=== PATIENT | female | born 2000 | race Two or more races ===

== ENCOUNTER 2025-06-22 09:48 | Outpatient (AMB) | payer MEDICAID, SELFPAY ==
[2025-06-22 10:02] VITALS: BP 105/69; PULSE 84; RESP 17; TEMP 36.9; O2SAT 96; BMI 29.0
--- NOTE | 2025-06-22 10:02 | OBCLNT_ITS ---
Vital Signs 06/22/25 10:02 Height 1.52 m Height Method Stated Weight 67.302 kg Weight Measurement Method Standing Scale BMI 29.0 BP 105/69 Blood Pressure Source Automatic Cuff Blood Pressure Location Right Upper Arm Position Sitting Respiration 17 Pulse 84 Pulse Source Monitor Temp 98.4 F Temp Source Temporal Artery Scan Pulse Oximetry (%) 96 Oxygen Delivery Method Room Air Allergies/Home Meds Allergies & Medications Allergies No Known Allergies Allergy (Verified 06/22/25 10:03) Medication Reconciliation Unobtainable 06/22/25 [History Confirmed 06/22/25] Intake Visit Data Collection New Patient or Established: New Patient (never been to [facility]) Reason for Visit:: OBI TRANSFER DR. PARISI Seen by Clinical Staff ONLY (RN/MA): No Kennel Hand Required: No Do You Feel Safe at Home: Yes Authorities Contacted: N/A PCP or OBGYN visit in last 3 months: No Hx Now: Yes Are you currently on any form of Control: No Pain Present Currently: No Pain Scale Used: Schneider-Miller/Numerical Pain scale:: 0 Smoking Status Smoking Status: Never smoker Questionnaires Covid-19 Vaccine Questionnaire Has patient been vacinated for Covid-19 Have you been vacinated for Covid-19: No PHQ-9 PHQ-2 Over the last 2 weeks, how often have you been bothered by any of the following problems? 1. Little interest or pleasure in doing things: not at all 2. Feeling down, depressed, or hopeless: not at all Total score: 0 PHQ-9 3. Trouble falling or staying asleep, or sleeping too much: Not at all 4. Feeling tired or having little energy: Not at all 5. Poor appetite or overeating: Not at all 6. Feeling bad about yourself - or that you are a failure or have let yourself or your family down: Not at all 7. Trouble concentrating on things, such as reading the newspaper or watching television: Not at all 8. Moving or speaking so slowly that other people could have noticed? - Or the opposite - being so fidgety or restless that you have been moving around a lot more than usual: not at all 9. Thoughts that you would be better off or of hurting yourself in some way: Not at all Total score: 0 If you checked off any problems, how difficult have these problems made it for you to do your work, take care of things at home, or get along with other people?: not difficult at all Source: Developed by Drs. Andrae Rodgers, Jennyfer Gloria, Anton Bella and colleagues, with an educational magui from [employer]. Depression screen completed yes Social History Living Situation History Marital Status: Lives With: Family Housing: House Tobacco History Smoking Status: Never smoker Second Hand Smoke Exposure: No Alcohol History Alcohol Intake: Never Domestic Abuse History Do You Feel Safe at Home: Yes History of Present Illness HPI Narrative 24-year-old 1 para 0 for initial OB. Patient transfer at [address] Parisi's office. Her last period was November 08, 2024. Estimated due date August 15, 2025. The first documented ultrasound was May 11, 2025. Patient was 27 weeks 3 days. And this confirmed dates. Denies social habits. Denies surgery. Denies chronic illness. Patient's labs have been within normal limits. There is no documented type and Rh in the chart. But patient RPR is negative. Rubella nonimmune. Hepatitis B negative, HIV negative, hep C negative, GC and Chlamydia were negative. Patient had negative NIPT, negative AFP, negative carrier screens. And the 1 hour GTT was normal. Reports good movement. Denies leaking, bleeding, contractions OB Initial Visit OB Flowsheet OB Flowsheet Initial Weight: Not Recorded Date -?-?-?-?-?-?-?-?-?-?-?-?- EGA Weight BP Alb Glu CTX Pres Fundal ht FHR Mov Dilation Station Effacement Hx Notes Visit Note 06/22/25 -?-?-?-?-?-?-?-?-?-?-?-?- 32w 2d 67.302 kg 105/69 absent cephalic 33 145 active 24-year-old for OBI. Patient a transfer from [facility] with records. Fetus active. Denies leaking, denies bleeding, denies contractions. Patient is taking vitamins. Her has been uneventful. S chedule ultrasound for MFM. Discussed labor precautions increase fluids. GBS next visit. kick count twice daily. Return in 2 weeks OB check Menstrual History Menstrual reliability: unknown Flow: normal Menstrual regularity: irregular Monthly: No Age at menarche: 15 On control pills at conception: No OB History : 1 Infection History & Risk Evaluation History of STDs: none HIV risk evaluation: low risk Hepatitis B risk evaluation: low risk Patient or partner has history of Genital Herpes: No Varicella/chicken pox status: unknown Genetic Screening & History Genetic Screening/Teratology Counseling - Includes patient, baby's father, or anyone in either family with: 1. Patient's age 35 years or older as of estimated date of delivery: No 2. Thalassemia (Uruguayan, Irish, Mediterranean, or Background); MCV less than 80: No 3. Neural Tube Defect (Meningomyelocele, Spina Bifida, or Anencephaly): No 4. Congenital Heart Defect: No 5. Down Syndrome: No 6. Miles-Sachs (Ashkenazi Church, Cajun, Greek Portuguese): No 7. Rosi Disease (Ashkenazi Church): No 8. Familial Dysautonomia (Ashkenazi Church): No 9. Sickle Cell Disease or Trait (): No 10. Hemophilia or other blood disorders: No 11. Muscular Dystrophy: No 12. Cystic Fibrosis: No 13. Liliana's Chorea: No 14. Mental Retardation/Autism: No 15. Other inherited genetic or chromosomal disorder: No 16. Maternal Metabolic Disorder (EG,TYPE 1 Diabetes, PKU): No 17. Patient or baby's father had a child with defects not listed above: No 18. Recurrent loss or a stillbirth: No 19. Medications (including supplements, vitamins, herbs or otc drugs)/illicit/recreational drugs/alcohol since last menstrual period: No 20. Any other: No Infection History 1. Live with someone with TB or exposed to TB: No 2. Rash or viral illness since last menstrual period: No 3. Hepatitis B,C: No Other (see comments) Source: [employer] Review of Systems Review of Systems Systems Reviewed: All systems reviewed, normal except as documented Exam General Limitations: no limitations General Appearance: alert, in no apparent distress, comfortable, cooperative, healthy appearing, well developed and well groomed Head Head exam: atraumatic, normocephalic and normal inspection Resp Respiratory exam: Present normal lung sounds bilaterally Card Cardiovascular exam: Present regular rate, normal rhythm and normal heart sounds Abdominal Abdominal exam: Present soft and normal bowel sounds Psych Psychiatric exam: Present normal affect and normal mood Office Procedures OB Clinic LOC & Office Proc's Nursing/Assessment Patient Status: Initial/New Patient OB Clinic Nursing Assessment: Medication Reconciliation, Update PMH in EMR and Vital Signs OB Clinic Coordination of Care: Complex Care and Chronic Disease 1-5, Consent,records obtained, informed consent, Education Simp Pt/Fam, 4+ Authorizations needed, Lab and Imaging orders and Staff clarify orders Special Needs: Heart tones New Patient Charge New Patient Point Assignment: [id number] New Patient Point Charge: LOCOMOTIVE ELECTRICIAN Level 4 (0646-1104) Assessment & Plan Diagnosis / Problem List (1) Encounter for supervision of normal first , third trimester: Status: Acute (2) High-risk : Status: Acute Qualifiers: Trimester: third trimester Qualified Code(s): O09.93 - Supervision of high risk , unspecified, third trimester Plan Schedule M ultrasound for growth. Discussed labor precautions. Continue prenatals. Discussed danger signs symptoms and signs of infection. Return in 2 weeks OB check and GBS Additional Plan Follow Up: 2 Weeks (obc)
== END 2025-06-22 10:38 | disposition home or self-care (01) ==
LOC: HODSOBC 09:48
PROVIDERS: Supervising Provider Advanced Practice Midwife; Visit Provider Advanced Practice Midwife
DX: Z34.03 Encounter for supervision of normal first pregnancy, third trimester (principal); Z3A.32 32 weeks gestation of pregnancy
CPT/HCPCS: 99204; G0463

== ENCOUNTER 2025-07-20 10:12 | Outpatient (AMB) | payer MEDICAID, SELFPAY ==
[2025-07-20 10:50] VITALS: BP 125/87; PULSE 88; RESP 16; TEMP 36; O2SAT 97; BMI 36.6
--- NOTE | 2025-07-20 10:50 | OBCLNT_ITS ---
Vital Signs 07/20/25 10:50 Height 1.52 m Height Method Stated Weight 84.538 kg Weight Measurement Method Standing Scale BMI 36.6 BP 125/87 H Blood Pressure Source Automatic Cuff Blood Pressure Location Left Upper Arm Position Sitting Respiration 16 Pulse 88 Pulse Source Monitor Temp 96.8 F Temp Source Oral Pulse Oximetry (%) 97 Oxygen Delivery Method Room Air Allergies/Home Meds Allergies & Medications Allergies No Known Allergies Allergy (Verified 07/20/25 10:51) Medication Reconciliation Unobtainable 06/22/25 [History Confirmed 07/20/25] Intake Visit Data Collection New Patient or Established: Established Patient (seen at [facility] within 3 years) Reason for Visit:: CARE Associate Professor Of Radiology Required: No Do You Feel Safe at Home: Yes Authorities Contacted: N/A PCP or OBGYN visit in last 3 months: Yes Hx Now: Yes Are you currently on any form of Control: No Pain Present Currently: No Pain Scale Used: Schneider-Miller/Numerical Pain scale:: 0 Smoking Status Smoking Status: Never smoker Questionnaires Covid-19 Vaccine Questionnaire Has patient been vacinated for Covid-19 Have you been vacinated for Covid-19: Yes PHQ-9 PHQ-2 Over the last 2 weeks, how often have you been bothered by any of the following problems? 1. Little interest or pleasure in doing things: not at all 2. Feeling down, depressed, or hopeless: not at all Total score: 0 PHQ-9 3. Trouble falling or staying asleep, or sleeping too much: Not at all 4. Feeling tired or having little energy: Not at all 5. Poor appetite or overeating: Not at all 6. Feeling bad about yourself - or that you are a failure or have let yourself or your family down: Not at all 7. Trouble concentrating on things, such as reading the newspaper or watching television: Not at all 8. Moving or speaking so slowly that other people could have noticed? - Or the opposite - being so fidgety or restless that you have been moving around a lot more than usual: not at all 9. Thoughts that you would be better off or of hurting yourself in some way: Not at all Total score: 0 Source: Developed by Drs. Andrae Rodgers, Jennyfer B.Anton Yuan and colleagues, with an educational magui from [employer]. Depression screen completed yes Social History Living Situation History Lives With: Family Housing: House Tobacco History Smoking Status: Never smoker Second Hand Smoke Exposure: No Alcohol History Alcohol Intake: Never Domestic Abuse History Do You Feel Safe at Home: Yes Care OB Visit Log OB Flowsheet Initial Weight: Not Recorded Date -?-?-?-?-?-?-?-?-?-?-?-?- EGA Weight BP Alb Glu CTX Pres Fundal ht FHR Mov Dilation Station Effacement Hx Notes Visit Note 06/22/25 -?-?-?-?-?-?-?-?-?-?-?-?- 32w 2d 67.302 kg 105/69 absent cephalic 33 145 active 24-year-old for OBI. Patient a transfer from [facility] with records. Fetus active. Denies leaking, denies bleeding, denies contractions. Patient is taking vitamins. Her has been uneventful. S chedule ultrasound for MFM. Discussed labor precautions increase fluids. GBS next visit. kick count twice daily. Return in 2 weeks OB check 07/20/25 -?-?-?-?-?-?-?-?-?-?-?-?- 36w 2d 84.538 kg 125/87 occasional cephalic 35 145 active No OB complaints. Fetus active. Denies leaking, denies bleeding, denies contractions. GBS today. Discussed labor precautions. Discussed kick count twice a day. Discussed danger signs symptoms and ER precautions. Return a week OB check KATE Calculator Estimated Delivery Date Method Current WG Current Estimate 08/15/25 LMP (Certain) 36w 2d Other Estimates 08/07/25 Ultrasound #1 37w 3d 08/15/25 Ultrasound #2 36w 2d Notes Visit Date: 06/22/25 Last Updated by: Cordeila Olguin CNM 06/22: 24 yo , lmp 11/08/24. eDC 08/15/25. 1st sono: 05/11/25: 27w3. EDC 08/07/25. NIPT/AFP and carrier screen-, HBSAG-,HIV-,HC-, GC/CT-, UT-, 1hr gtt- RPR:NR, rubella NI, A1: 5.6 Office Procedures OB Clinic LOC & Office Proc's Nursing/Assessment Patient Status: Established Patient OB Clinic Nursing Assessment: Medication Reconciliation, Update PMH in EMR and Vital Signs OB Clinic Coordination of Care: Complex Care and Chronic Disease 1-5, Consent,records obtained, informed consent, Education Simp Pt/Fam, Lab and Imaging orders, Results/Orders obtained and Staff clarify orders Special Needs: Heart tones Miscellaneous Interventions: Culture Specimen Collection Established Patient Charge Established Patient Point Assignment: 150 Established Patient Point Charge: EP Level 4 (120-155) Assessment & Plan Diagnosis / Problem List (1) Encounter for supervision of normal first , third trimester: Status: Acute Plan Discussed labor precautions. Discussed danger signs symptoms. Discussed ER precautions. Kick count twice a day. Return a week OB check Additional Plan Follow Up: 1 Week (obc)
== END 2025-07-20 11:05 | disposition home or self-care (01) ==
LOC: HODSOBC 10:12
PROVIDERS: Supervising Provider Advanced Practice Midwife; Visit Provider Advanced Practice Midwife
DX: Z34.03 Encounter for supervision of normal first pregnancy, third trimester (principal); Z36.85 Encounter for antenatal screening for Streptococcus B; Z3A.36 36 weeks gestation of pregnancy
CPT/HCPCS: 99214; G0463

== ENCOUNTER 2025-07-28 10:46 | Outpatient (AMB) | payer MEDICAID, SELFPAY ==
[2025-07-28 10:58] VITALS: BP 113/73; PULSE 94; RESP 16; TEMP 36.2; O2SAT 98
--- NOTE | 2025-07-28 10:58 | OBCLNT_ITS ---
Vital Signs 07/28/25 10:58 Height 1.52 m Height Method Stated Weight 69.513 kg Weight Measurement Method Standing Scale BMI 30.0 BP 113/73 Blood Pressure Source Automatic Cuff Blood Pressure Location Left Upper Arm Position Sitting Respiration 16 Pulse 94 Pulse Source Monitor Temp 97.2 F Temp Source Oral Pulse Oximetry (%) 98 Oxygen Delivery Method Room Air Allergies/Home Meds Allergies & Medications Allergies No Known Allergies Allergy (Verified 07/28/25 10:59) Medication Reconciliation Unobtainable 06/22/25 [History Confirmed 07/28/25] Intake Visit Data Collection New Patient or Established: Established Patient (seen at [facility] within 3 years) Reason for Visit:: OBC Seen by Clinical Staff ONLY (RN/MA): No Digital Coordinator Required: No Do You Feel Safe at Home: Yes Authorities Contacted: N/A PCP or OBGYN visit in last 3 months: Yes Date of Last PCP or OBGYN visit: 07/20/25 Hx Now: Yes Are you currently on any form of Control: No Pain Present Currently: No Pain Scale Used: Schneider-Miller/Numerical Pain scale:: 0 Smoking Status Smoking Status: Never smoker Questionnaires Covid-19 Vaccine Questionnaire Has patient been vacinated for Covid-19 Have you been vacinated for Covid-19: Yes PHQ-9 PHQ-2 Over the last 2 weeks, how often have you been bothered by any of the following problems? 1. Little interest or pleasure in doing things: not at all 2. Feeling down, depressed, or hopeless: not at all Total score: 0 PHQ-9 3. Trouble falling or staying asleep, or sleeping too much: Not at all 4. Feeling tired or having little energy: Not at all 5. Poor appetite or overeating: Not at all 6. Feeling bad about yourself - or that you are a failure or have let yourself or your family down: Not at all 7. Trouble concentrating on things, such as reading the newspaper or watching television: Not at all 8. Moving or speaking so slowly that other people could have noticed? - Or the opposite - being so fidgety or restless that you have been moving around a lot more than usual: not at all 9. Thoughts that you would be better off or of hurting yourself in some way: Not at all Total score: 0 If you checked off any problems, how difficult have these problems made it for you to do your work, take care of things at home, or get along with other people ?: not difficult at all Source: Developed by Drs. Andrae Rodgers, Jennyfer Gloria, Anton Bella and colleagues, with an educational magui from [employer]. Depression screen completed yes Social History Living Situation History Lives With: Family Housing: House Tobacco History Smoking Status: Never smoker Second Hand Smoke Exposure: No Alcohol History Alcohol Intake: Never Domestic Abuse History Do You Feel Safe at Home: Yes Care OB Visit Log OB Flowsheet Initial Weight: Not Recorded Date -?-?-?-?-?-?-?-?-?-?-?-?- EGA Weight BP Alb Glu CTX Pres Fundal ht FHR Mov Dilation Station Effacement Hx Notes Visit Note 06/22/25 -?-?-?-?-?-?-?-?-?-?-?-?- 32w 2d 67.302 kg 105/69 absent cephalic 33 145 active 24-year-old for OBI. Patient a transfer from [facility] with records. Fetus active. Denies leaking, denies bleeding, denies contractions. Patient is taking vitamins. Her has been uneventful. S chedule ultrasound for MFM. Discussed labor precautions increase fluids. GBS next visit. kick count twice rosalva ly. Return in 2 weeks OB check 07/20/25 -?-?-?-?-?-?-?-?-?-?-?-?- 36w 2d 84.538 kg 125/87 occasional cephalic 35 145 active No OB complaints. Fetus active. Denies leaking, denies bleeding, denies contractions. GBS today. Discussed labor precautions. Discussed kick count twice a day. Discussed danger signs symptoms and ER precautions. Return a week OB check 07/28/25 -?-?-?-?-?-?-?-?-?-?-?-?- 37w 3d 69.513 kg 113/73 occasional cephalic 36 145 active Fetus active. De nies leaking. Denies bleeding. Occasional contraction and pressure. GBS was positive Discussed GBS. Discussed labor precautions. Kick count twice a day. Discussed danger signs symptoms and ER precautions. Return week OB check KATE Calculator Estimated Delivery Date Method Current WG Current Estimate 08/15/25 LMP (Certain) 37w 3d Other Estimates 08/07/25 Ultrasound #1 38w 4d 08/15/25 Ultrasound #2 37w 3d Notes Visit Date: 07/28/25 Last Updated by: Cordelia Olguin CNM GBS+ Visit Date: 06/22/25 Last Updated by: Cordelia Olguin CNM 06/22: 24 yo , lmp 11/08/24. eDC 08/15/25. 1st sono: 05/11/25: 27w3. EDC 08/07/25. NIPT/AFP and carrier screen-, HBSAG-,HIV-,HC-, GC/CT-, UT-, 1hr gtt- RPR:NR, rubella NI, A1: 5.6 Office Procedures OB Clinic LOC & Office Proc's Nursing/Assessment Patient Status: Established Patient OB Clinic Nursing Assessment: Medication Reconciliation, Update PMH in EMR and Vital Signs OB Clinic Coordination of Care: Education Complex Pt/Fam, Consent,records obtained, informed consent, Lab and Imaging orders, Results/Orders obtained and Staff clarify orders Special Needs: Heart tones Established Patient Charge Established Patient Point Assignment: 115 Established Patient Point Charge: EP Level 3 (80-115) Assessment & Plan Diagnosis / Problem List (1) Encounter for supervision of normal first , third trimester: Status: Acute Plan Discussed GBS. Discussed labor precautions. Discussed kick count twice a day. Increase fluids. Continue prenatals. Return a week OB to Additional Plan Follow Up: 1 Week (obc)
== END 2025-07-28 11:36 | disposition home or self-care (01) ==
LOC: HODSOBC 10:46
PROVIDERS: Supervising Provider Advanced Practice Midwife; Visit Provider Advanced Practice Midwife
DX: O09.893 Supervision of other high risk pregnancies, third trimester (principal); O99.820 Streptococcus B carrier state complicating pregnancy; Z3A.37 37 weeks gestation of pregnancy
CPT/HCPCS: 99213; G0463

== ENCOUNTER 2025-08-10 10:08 | Outpatient (AMB) | payer MEDICAID, SELFPAY ==
--- NOTE | 2025-08-10 10:44 | OBCLNT_ITS ---
Vital Signs 08/10/25 10:52 Height 1.52 m Height Method Stated Weight 70.874 kg Weight Measurement Method Standing Scale BMI 30.7 BP 137/81 H Blood Pressure Source Automatic Cuff Blood Pressure Location Left Upper Arm Position Sitting Respiration 16 Pulse 81 Pulse Source Monitor Temp 98.1 F Temp Source Oral Pulse Oximetry (%) 97 Oxygen Delivery Method Room Air Allergies/Home Meds Allergies & Medications Allergies No Known Allergies Allergy (Verified 08/10/25 10:53) Medication Reconciliation Unobtainable 06/22/25 [History Confirmed 08/10/25] Intake Visit Data Collection New Patient or Established: Established Patient (seen at [facility] within 3 years) Reason for Visit:: CARE Seen by Clinical Staff ONLY (RN/MA): No [employer]ber Required: No Do You Feel Safe at Home: Yes Authorities Contacted: N/A PCP or OBGYN visit in last 3 months: Yes Hx Now: Yes Are you currently on any form of Control: No Pain Present Currently: No Pain Scale Used: Schneider-Miller/Numerical Pain scale:: 0 Smoking Status Smoking Status: Never smoker Questionnaires Covid-19 Vaccine Questionnaire Has patient been vacinated for Covid-19 Have you been vacinated for Covid-19: Yes PHQ-9 PHQ-2 Over the last 2 weeks, how often have you been bothered by any of the following problems? 1. Little interest or pleasure in doing things: not at all 2. Feeling down, depressed, or hopeless: not at all Total score: 0 PHQ-9 3. Trouble falling or staying asleep, or sleeping too much: Not at all 4. Feeling tired or having little energy: Not at all 5. Poor appetite or overeating: Not at all 6. Feeling bad about yourself - or that you are a failure or have let yourself or your family down: Not at all 7. Trouble concentrating on things, such as reading the newspaper or watching television: Not at all 8. Moving or speaking so slowly that other people could have noticed? - Or the opposite - being so fidgety or restless that you have been moving around a lot more than usual: not at all 9. Thoughts that you would be better off or of hurting yourself in some way: Not at all Total score: 0 Source: Developed by Jennyfer Chu B.W. Faizan, Anton Bella and colleagues, with an educational magui from [employer]. Depression screen completed yes Social History Living Situation History Lives With: Family Housing: House Tobacco History Smoking Status: Never smoker Second Hand Smoke Exposure: No Alcohol History Alcohol Intake: Never Domestic Abuse History Do You Feel Safe at Home: Yes Care OB Visit Log OB Flowsheet Initial Weight: Not Recorded Date -?-?-?-?-?-?-?-?-?-?-?-?- EGA Weight BP Alb Glu CTX Pres Fundal ht FHR Mov Dilation Station Effacement Hx Notes Visit Note 06/22/25 -?-?-?-?-?-?-?-?-?-?-?-?- 32w 2d 67.302 kg 105/69 absent cephalic 33 145 active 24-year-old for OBI. Patient a transfer from [facility] with records. Fetus active. Denies leaking, denies bleeding, denies contractions. Patient is taking vitamins. Her has been uneventful. S chedule ultrasound for MFM. Discussed labor precautions increase fluids. GBS next visit. kick count twice daily. Return in 2 weeks OB check 07/20/25 -?-?-?-?--?-?-?-?-?-?-?-?- 36w 2d 84.538 kg 125/87 occasional cephalic 35 145 active No OB complaints. Fetus active. Denies leaking, denies bleeding, denies contractions. GBS today. Discussed labor precautions. Discussed kick count twice a day. Discussed danger signs symptoms and ER precautions. Return a week OB check 07/28/25 -?-?-?--?-?-?-?-?-?-?-?-?- 37w 3d 69.513 kg 113/73 occasional cephalic 36 145 active Fetus active. Denies leaking. Denies bleeding. Occasional contraction and pressure. GBS was positive Discussed GBS. Discussed labor precautions. Kick count twice a day. Discussed danger signs symptoms and ER precautions. Return week OB check 08/10/25 -?-?-?-?-?-?-?-?-?-?-?-?- 39w 2d 70.874 kg 137/81 occasional cephalic 38 145 active 1 -2 80 Increased pressure and contractions. Denies leaking. Denies bleeding. Occasional contraction. Reports good movement Discussed labor signs and symptoms. Discussed ER precautions. Kick count twice a day. And danger signs symptoms reviewed return in a week OB check KATE Calculator Estimated Delivery Date Method Current WG Current Estimate 08/15/25 LMP (Certain) 39w 2d Other Estimates 08/07/25 Ultrasound #1 40w 3d 08/15/25 Ultrasound #2 39w 2d Notes Visit Date: 07/28/25 Last Updated by: Cordelia Olguin CNM GBS+ Visit Date: 06/22/25 Last Updated by: Cordelia Olguin CNM 06/22: 24 yo , lmp 11/08/24. eDC 08/15/25. 1st sono: 05/11/25: 27w3. EDC 08/07/25. NIPT/AFP and carrier screen-, HBSAG-,HIV-,HC-, GC/CT-, UT-, 1hr gtt- RPR:NR, rubella NI, A1: 5.6 Office Procedures OB Clinic LOC & Office Proc's Nursing/Assessment Patient Status: Established Patient OB Clinic Nursing Assessment: Medication Reconciliation, Update PMH in EMR and Vital Signs OB Clinic Coordination of Care: Complex Care and Chronic Disease 1-5, Consent,records obtained, informed consent, Education Simp Pt/Fam, 1 Ins Authorization, Lab and Imaging orders, Results/Orders obtained and Staff clarify orders Special Needs: Heart tones Established Patient Charge Established Patient Point Assignment: 150 Established Patient Point Charge: EP Level 4 (120-155) Assessment & Plan Diagnosis / Problem List (1) High-risk : Status: Acute Qualifiers: Trimester: third trimester Qualified Code(s): O09.93 - Supervision of high risk , unspecified, third trimester (2) Encounter for supervision of normal first , third trimester: Status: Acute Plan Discussed labor precautions. Kick count twice a day. Discussed ER precautions and signs symptoms. Patient is aware of PIH signs and symptoms. Return in a week OB check Additional Plan Follow Up: 1 Week (obc)
[2025-08-10 10:52] VITALS: BP 137/81; PULSE 81; RESP 16; TEMP 36.7; O2SAT 97; BMI 30.7
== END 2025-08-10 11:02 | disposition home or self-care (01) ==
LOC: HODSOBC 10:08
PROVIDERS: Supervising Provider Advanced Practice Midwife; Visit Provider Advanced Practice Midwife
DX: Z34.03 Encounter for supervision of normal first pregnancy, third trimester (principal); Z3A.39 39 weeks gestation of pregnancy
CPT/HCPCS: 99214; G0463

== ENCOUNTER 2025-08-11 13:08 | Inpatient (IN) | payer MEDICAID, SELFPAY ==
[2025-08-11] VITALS (103 sets, daily range): BP systolic 106–189; BP diastolic 59–99; PULSE 64–96; RESP 18–98; TEMP 36.8–37.1; O2SAT 92–100; BMI 31.8
[2025-08-11 14:00] LABS: ROM Kit Exp Date# 011828; ROM Kit Lot # 58104371; ROM Swab Mixed By: MEDIA1; Rupture of Fetal Membranes Positive (Negative); Swb Mxed in Solvent 1 min? Yes
[2025-08-11 15:10] LABS: Basophils # (Auto) 0.0 Thou/mm3 (0.0-0.2); Basophils % (Auto) 0 % (0-2.5); Eosinophils # (Auto) 0.0 Thou/mm3 (0.0-0.5); Eosinophils % (Auto) 1 % (0-10); Hematocrit 31.8 % (36.0-46.0); Hemoglobin 10.9 g/dL (12.0-16.0); Immature Granulocytes Auto 0.05 Thou/mm3 (0.00-0.00); Lymphocytes # (Auto) 1.0 Thou/mm3 (1.0-4.8); Lymphocytes % (Auto) 13 % (10-50); Mean Corpuscular HGB Conc 34.3 g/dl (31.0-37.0); Mean Corpuscular Hemoglobin 31.1 pg (25.0-35.0); Mean Corpuscular Volume 91 fL (80-100); Monocytes # (Auto) 0.6 Thou/mm3 (0.0-0.8); Monocytes % (Auto) 8 % (0-12); Neutrophils # (Auto) 5.9 Thou/mm3 (1.8-7.7); Neutrophils % (Auto) 77 % (37-80); Nucleated Red Blood Cell # 0.00 Thou/mm3 (0.00-0.00); Nucleated Red Blood Cell % 0 /100 WBC (0); Platelet Count 182 Thou/mm3 (140-440); RDW Standard Deviation 47.9 fL (36.4-46.3); Red Blood Count 3.51 Miln/mm3 (4.00-5.20); White Blood Count 7.6 Thou/mm3 (3.6-11.0)
--- NOTE | 2025-08-11 15:28 | XR_ITS ---
Examination: Complete OB ultrasound greater than 14 weeks Date and time of exam: August 11, 2025, 1545 hrs. Indications: Onset beginning amniotic fluid today Findings: Viable intrauterine single fetus with single amniotic sac presentation cephalic spine maternal left. Cardiac motion 133 BPM. Placenta anterior grade 3. Umbilical cord insertion seen. Amniotic fluid index 8.4 cm. Ovaries obscured by bowel gas. . Composite estimated gestational age based on BPD, head circumference, abdominal circumference, femur length is 36 weeks 4 days. Estimated weight 3091.8 g.. Survey of intracranial anatomy, spinal anatomy, abdominal anatomy, four-chamber heart performed with no abnormalities identified. Impression: Viable intrauterine gestation cephalic presentation.
--- NOTE | 2025-08-11 16:00 | PD.LDHP ---
Documentation for date of: 08/11/25 OB Labor/Induct. HPI History of Present Illness Chief complaint: leaking : 1 Para: 0 Term pregnancies: 0 pregnancies: 0 Living children: 0 History of Abortions: Spontaneous and Elective: 0 History of Vaginal deliveries: 0 History of sections: No History of : No Date of last menstrual period: 11/08/24 KATE: 08/15/25 Gestational Age (weeks): 39 Gestational Age (days): 3 Gestational age based on last menstrual period: 39 History of present illness: 24-year-old 1 para 0 for complaints of leaking fluid since 8 in the morning and contractions since 9:00. Patient was followed both at Dr. Pathak's office and then transferred to [facility] OB clinic at 32 weeks with records. Patient has not had a problem with at all reports good movement. No bleeding. Last. November 08, 2024. Her estimated due date what is August 15, 2025. That is based on a 27-week ultrasound that was done in May. Denies social habits. Denies surgery. Denies chronic illness. Patient is O+, antibody screen negative, RPR nonreactive, rubella nonimmune. Hepatitis B-, hep C negative, HIV negative, GC and Chlamydia were negative. 1 hour was normal. And patient is GBS positive History of Present Dating criteria: LMP confirmed by 1st trimester US Adequate Care: Yes Ultrasounds: normal mid trimester US Obstetrical complications: none Medical complications: none Labs Labs: Positive: Group Beta Strep, Negative: RPR, Hepatitis B, Rubella Titre, HIV, Chlamydia and Gonorrhea and Unknown: Herpes Type 1, Herpes Type 2 and Covid-19 Review of Systems Review of Systems Systems Reviewed: All systems reviewed, normal except as documented Past Medical History Surgical History SURGICAL: Negative Section Meds Home Medications and Allergies Home Medications ?Medication ?Instructions ?Recorded ?Confirmed ?Type okimiqn-dozh-SO 40 mg-1 1 tab PO QDAY 08/11/25 08/11/25 History mg chewable tablet Allergies Allergy/AdvReac Type Severity Reaction Status Date / Time No Known Allergies Allergy Verified 08/11/25 13:14 OB Exam Physical Exam Vital signs: Temp Pulse Resp BP Pulse Ox O2 Del Method 98.6 F 75 18 110/80 98 Room Air 08/11/25 13:24 08/11/25 13:25 08/11/25 13:24 08/11/25 13:25 08/11/25 15:08/11/25 13:24 Narrative: Alert and oriented. Normal heart rate and rhythm. Lungs clear no wheezes. Gravid abdomen. Gynecoid pelvis. Estimated weight 7-1/2 pounds. Vaginal exam on admission was 80%, 1, -2. Mid position. Vertex. Leaking clear fluid. Irregular contractions heart rate category 1 with accelerations and moderate variability Detailed Labor and Delivery Exam Dilation (cm): 1 Effacement (%): 80 Cervix position: mid station: -2 Consistency: medium Presentation: Vertex Membranes: ruptured Amniotic fluid: clear Baseline heart rate: 145 monitor accelerations: 15x15 monitor decelerations: None detention variability: Moderate (-25) Contraction frequency (min): irreg Contraction duration (sec): 30 Tachysystole: No Contraction intensity: Mild OB Results Labs 08/11/25 14:30 Labs: Short CBC 08/11/25 Range/Units 14:30 WBC 7.6 (3.6-11.0) Thou/mm3 Hgb 10.9 L (12.0-16.0) g/dL Hct 31.8 L (36.0-46.0) % Plt Count 182 (140-440) Thou/mm3 OB Assessment & Plan Assessment and Plan (1) Normal labor and delivery: Status: Acute Additional Plan Induction method: per misoprostol protocol Plan: augmentation, anticipate NVD, GBS prophylaxis tx and consult MD hopkins
[2025-08-11] MEDS: RINGERS LACTATED 1000 ML 1,000 ML 100 ML IV ×2 (16:49→21:55)
[2025-08-11] MEDS: Ampicillin Inj 2,000 MG in SODIUM CHLORIDE 0.9% (POP) 100 ML 200 MG IV (16:51)
[2025-08-11 17:54] LABS: Syphilis Nonreactive (Nonreactive)
[2025-08-11 18:22] LABS: COVID-19 Antigen (In-House) Positive (Negative)
[2025-08-11 20:22] LABS: Fibrinogen 553 mg/dL (175-375); INR 0.9 (0.9-1.3); Partial Thromboplastin Time 29.6 Seconds (22.0-36.0); Prothrombin Time 9.8 Seconds (9.0-12.2)
[2025-08-11 20:30] LABS: Alanine Aminotransferase 11 U/L (10-49); Albumin, Serum 3.8 gm/dL (3.5-5.0); Albumin/Globulin Ratio 1.8 (1.2-2.2); Alkaline Phosphatase 160 U/L (46-116); Anion Gap 12 (7-16); Aspartate Amino Transferase 21 U/L (0-34); BUN/Creatinine Ratio 12 Ratio (12-20); Bilirubin,Total 0.3 mg/dL (0.3-1.2); Blood Urea Nitrogen 6 mg/dL (9-23); Calcium 9.4 mg/dL (8.3-10.6); Calcium (Corrected) 9.6 mg/dL (8.5-10.1); Carbon Dioxide 21.2 mMol/L (20.0-31.0); Chloride 105 mMol/L (98-107); Creatinine (Component) 0.5 mg/dL (0.6-1.3); Estimated Creatinine Clearance 146.8 mL/min (>60); Globulin 2.1 gm/dL (2.3-3.5); Glucose 71 mg/dL (74-106); Osmolality,Calculated 271 (275-295); Potassium 3.6 mMol/L (3.4-5.1); Sodium 138 mMol/L (136-145); Total Protein 5.9 gm/dL (5.7-8.2); Uric Acid 4.2 mg/dL (3.1-7.8); eGFR > 60 See Note
[2025-08-11] MEDS: LABETALOL 100 MG TABLET 200 MG PO (21:11)
[2025-08-11] MEDS: Ampicillin Inj 1,000 MG in SODIUM CHLORIDE 0.9% (Popper) 50 ML 50 MG IV (21:12)
[2025-08-12] VITALS (165 sets, daily range): BP systolic 102–209; BP diastolic 55–118; PULSE 71–123; RESP 16–19; TEMP 36.8–37.7; O2SAT 92–100
[2025-08-12] MEDS: Ampicillin Inj 1,000 MG in SODIUM CHLORIDE 0.9% (Popper) 50 ML 50 MG IV (01:35)
[2025-08-12] MEDS: ACETAMINOPHEN 325 MG TABLET 650 MG PO (01:47)
[2025-08-12] MEDS: RINGERS LACTATED 1000 ML 1,000 ML 100 ML IV (06:12)
[2025-08-12] MEDS: OXYTOCIN in NS 20 units 20 UNIT/1,000 ML BAG 125 UNIT IV (06:12)
[2025-08-12] MEDS: OXYTOCIN INJ 10 UNIT/ML VIAL IM (06:12)
[2025-08-12] MEDS: MINERAL OIL 30 ML UDC TOP (06:12)
[2025-08-12] MEDS: BENZO/LANO/ALOE (Dermoplast) 60 GM CAN 1 SPRAY TOP (06:13)
[2025-08-12] MEDS: IBUPROFEN TAB 400 MG TABLET 800 MG PO (06:13)
[2025-08-12] MEDS: TRANEXAMIC ACID 1,000 MG IVPB 1,000 MG/100 ML BAG 200 MG IV ×2 (06:32→08:12)
--- NOTE | 2025-08-12 06:39 | PD.LDDELS ---
Data (Palmer) Data Hx Section: No : 1 Term: 0 : 0 Livin Abortions: Spontaneous & Theraputic: 0 Delivery Data (Palmer) Labor Data Initiation of labor: Augmentation Induction/Augmentation Agent: Cytotec-PO ROM date: 08/11/25 ROM time: 08:00 Amniotic membrane rupture type: Spontaneous Amniotic fluid description: Clear and Particulate Meconium Delivery Data EDC: 08/15/25 EDC calculated by:: LMP/early US confirmation Date of arrival to unit: 08/11/25 Time of arrival to unit: 13:08 Onset of labor date: 08/11/25 Onset of labor time: 05:53 Complete dilation date: 08/12/25 Complete dilation time: 03:02 delivery date: 08/12/25 [place] delivery time: 05:53 Gestational age (weeks): 39 Gestational age (days): 3 Placenta delivery date: 08/12/25 Placenta delivery time: 06:00 Stage 1 total time: Labor - Stage 1 Duration 21 hours and 9 minutes Delivered by: FLORENCE Delivery nurse: jahaira Walker nurse: dustin Roe rnc Lead Technologist In Cytogenetics at delivery: No Support person(s) at delivery: father of baby and cousin Delivery Method Delivery method: Normal Vaginal Delivery Presentation: Vertex position: OA Anesthesia Type Anesthesia Type: Epidural Delivery Room Medications Delivery room medications: Pitocin 10 u IM, Pitocin 20 u IV, Cytotec 800 GA and other (TXA) Placenta Placenta delivery description: Spontaneous (inspected, intact) Cord blood sent to lab: Yes cord blood collection: Cord Blood Type Episiotomy Episiotomy description: Midline Perineal repair Sutures used for repair: 3.0 Vicryl (2.0) EBL Estimated blood loss (ml): 400 Umbilical Cord cord description: 3 Vessels [place] Data (Palmer) Data order: 1 's gender: Female Identification band number: [id number] weight (gms): 3340 g Weight (pounds): 7 lbs and 5.8 ozs length: 50.8 cm 1 minute: 9 5 minutes: 9 10 minutes: 9
[2025-08-12] MEDS: DOCUSATE SOD 100 MG CAPSULE PO ×2 (08:44→20:24)
[2025-08-12] MEDS: SODIUM CHLORIDE 0.9% 250 ML 250 ML IV (09:32)
[2025-08-12] MEDS: Ampicillin Inj 2,000 MG in SODIUM CHLORIDE 0.9% (POP) 100 ML 100 MG IV ×2 (09:32→17:27)
[2025-08-12 16:49] LABS: Basophils # (Auto) 0.0 Thou/mm3 (0.0-0.2); Basophils % (Auto) 0 % (0-2.5); Eosinophils # (Auto) 0.0 Thou/mm3 (0.0-0.5); Eosinophils % (Auto) 0 % (0-10); Hematocrit 29.4 % (36.0-46.0); Hemoglobin 10.2 g/dL (12.0-16.0); Immature Granulocytes Auto 0.05 Thou/mm3 (0.00-0.00); Lymphocytes # (Auto) 1.5 Thou/mm3 (1.0-4.8); Lymphocytes % (Auto) 9 % (10-50); Mean Corpuscular HGB Conc 34.7 g/dl (31.0-37.0); Mean Corpuscular Hemoglobin 31.6 pg (25.0-35.0); Mean Corpuscular Volume 91 fL (80-100); Monocytes # (Auto) 0.9 Thou/mm3 (0.0-0.8); Monocytes % (Auto) 6 % (0-12); Neutrophils # (Auto) 13.6 Thou/mm3 (1.8-7.7); Neutrophils % (Auto) 85 % (37-80); Nucleated Red Blood Cell # 0.00 Thou/mm3 (0.00-0.00); Nucleated Red Blood Cell % 0 /100 WBC (0); Platelet Count 155 Thou/mm3 (140-440); RDW Standard Deviation 49.1 fL (36.4-46.3); Red Blood Count 3.23 Miln/mm3 (4.00-5.20); White Blood Count 16.0 Thou/mm3 (3.6-11.0)
[2025-08-13 00:43] VITALS: BP 111/70; PULSE 67; RESP 18; TEMP 36.6; O2SAT 96
[2025-08-13] MEDS: Ampicillin Inj 2,000 MG in SODIUM CHLORIDE 0.9% (POP) 100 ML 100 MG IV (00:47)
[2025-08-13 04:20] VITALS: BP 123/78; PULSE 71; RESP 16; TEMP 36.6; O2SAT 97
[2025-08-13] MEDS: DOCUSATE SOD 100 MG CAPSULE PO (07:57)
[2025-08-13] MEDS: IBUPROFEN TAB 400 MG TABLET 800 MG PO (07:57)
[2025-08-13 08:00] VITALS: BP 125/75; PULSE 75; RESP 17; TEMP 36.6; O2SAT 97
--- NOTE | 2025-08-13 09:32 | ESPR_ITS ---
Subjective Subjective Interval history: No complaints of pain. No dizziness. Voiding. No cough cold or wheezing. Exam Vital Signs Temp Pulse Resp BP Pulse Ox O2 Del Method 97.9 F 75 17 125/75 97 Room Air 08/13/25 08:00 08/13/25 08:00 08/13/25 08:00 08/13/25 08:00 08/13/25 08:00 08/13/25 08:00 Narrative Exam Vital signs are stable afebrile. Breasts are soft. Fundus is firm 3 below umbilicus. Small lochia. Uterus well involuted. Perineum intact no cyst swelling noted. Well repaired negative Homans' sign. 2+ DTRs Objective Labs 08/12/25 16:22 08/11/25 19:24 Labs: Laboratory Results - last 24 hr 08/12/25 16:22 WBC 16.0 H D RBC 3.23 L Hgb 10.2 L Hct 29.4 L MCV 91 MCH 31.6 MCHC 34.7 RDW Std Deviation 49.1 H Plt Count 155 Neut % (Auto) 85 H Lymph % (Auto) 9 L [place] % (Auto) 6 Eos % (Auto) 0 Baso % (Auto) 0 Neut # (Auto) 13.6 H Lymph # (Auto) 1.5 [place] # (Auto) 0.9 H Eos # (Auto) 0.0 Baso # (Auto) 0.0 Immature Gran # (Auto) 0.05 H Absolute Nucleated RBC 0.00 Immature Gran % 0 Nucleated RBC % 0 Assessment & Plan Problem List (1) Normal labor and delivery: Status: Acute Assessment Comment Assessment comment: 24 hr pp Plan Comment Plan Comment: Discharge home with baby. Continue vitamins and iron. Tylenol ibuprofen for pain. Discussed danger signs symptoms and ER precautions. Discussed signs symptoms of infection. Continue sitz bath's twice a day. Return in 3 weeks Time Spent With Patient Time: Total time spent is greater than 50% in coordination of care (as documented) at patient's floor/unit and/or counseling patient:
--- NOTE | 2025-08-13 09:34 | PD.LDDS ---
DS: Providers Provider Date of admission: 08/11/25 14:41 Primary care physician: Physician No Primary/Family Admitting Provider: Cordelia Olguin CNM Attending Provider on Admission: Elsie Roberson MD Consults: 08/12/25 06:57 Referral Routine Comment: Attending Provider on DC: Cordelia Olguin CNM Discharging Provider: Cordelia Olguin CNM DS: Diagnosis Problem List Completed Was Problem List Reviewed/Reconciled?: Yes Summary/Hosp Course Brief History: 24-year-old 1 para 0 for complaints of leaking fluid since 8 in the morning and contractions since 9:00. Patient was followed both at Dr. Pathak's office and then transferred to [facility] OB clinic at 32 weeks with records. Patient has not had a problem with at all reports good movement. No bleeding. Last. November 08, 2024. Her estimated due date what is August 15, 2025. That is based on a 27-week ultrasound that was done in May. Denies social habits. Denies surgery. Denies chronic illness. Patient is O+, antibody screen negative, RPR nonreactive, rubella nonimmune. Hepatitis B-, hep C negative, HIV negative, GC and Chlamydia were negative. 1 hour was normal. And patient is GBS positive Peripartum Data Delivery Method: Normal Vaginal Delivery Episiotomy Description: Midline Laceration Description: no complications: none Time Spent with Patient Time attestation: Total time spent providing and/or coordinating discharge services: Exam Vital Signs Temp Pulse Resp BP Pulse Ox O2 Del Method 97.9 F 75 17 125/75 97 Room Air 08/13/25 08:00 08/13/25 08:00 08/13/25 08:00 08/13/25 08:00 08/13/25 08:00 08/13/25 08:00 Discharge Plan Plan Patient Disposition: HOME (Self Care) Prescriptions/Referrals Prescriptions/Med Rec: No Action gwinsax-augv-PU 40-1 mg tablet,chewable 1 tab PO QDAY Referrals: No Primary/Family,Physician [Primary Care Provider] Patient/Caregiver Discharge Instructions Discharge Activity: resume usual activities Education Materials: After a Vaginal , After Delivery Concerns, Breast Care After Print Language: Moldovan Activity Restrictions/Additional Instructions: Discharge home with baby. Advised patient for partner and aunt to get tested for COVID. Discussed masking. Handwashing. Increase fluids. Tylenol or ibuprofen for pain. Continue prenatals. Discussed comfort measures and sitz bath's for midline appease. Discussed danger signs symptoms and ER precautions. Discussed signs symptoms of infection. Stand Alone Forms: Sherice Award Info., Patient Portal Info Letter Discharge Order Discharge Orders: Discharge (Routine); Ordered 08/13/25 Ordered By: Cordelia Olguin Planned Discharge Date 08/13/25
== END 2025-08-13 12:48 | disposition home or self-care (01) | DRG 560 ==
LOC: S4SX 23:39 → S4NX 08-12 09:23
PROVIDERS: Admitting Provider Advanced Practice Midwife; Visit Provider Obstetrics & Gynecology
DX: O99.824 Streptococcus B carrier state complicating childbirth (principal); O77.0 Labor and delivery complicated by meconium in amniotic fluid; Z37.0 Single live birth; Z3A.39 39 weeks gestation of pregnancy
CPT/HCPCS: 36415; 59025; 59409; 76805; 80053; 81001; 82570; 84112; 84156; 84550; 85025; 85384; 85610; 85730; 86780; 86850; 86900; 86901; 87635; 87811; 94762; J0290; J2590; J2795; J3490; J7050; J7120; S0191; A9270

== ENCOUNTER 2025-09-01 09:35 | Outpatient (AMB) | payer MEDICAID, SELFPAY ==
[2025-09-01 09:45] VITALS: BP 108/70; PULSE 64; RESP 17; TEMP 36.5; O2SAT 97; BMI 27.1
--- NOTE | 2025-09-01 09:45 | AMBOBPPN_ITS ---
Vital Signs 09/01/25 09:45 Height 1.5 m Height Method Stated Weight 60.951 kg Weight Measurement Method Standing Scale BMI 27.1 BP 108/70 Blood Pressure Source Automatic Cuff Blood Pressure Location Right Upper Arm Position Sitting Respiration 17 Pulse 64 Pulse Source Monitor Temp 97.7 F Temp Source Temporal Artery Scan Pulse Oximetry (%) 97 Oxygen Delivery Method Room Air Allergies/Home Meds Allergies & Medications Allergies No Known Allergies Allergy (Verified 09/01/25 09:46) Medication Reconciliation qbjqldq-crme-RG 40 mg-1 mg chewable tablet 1 tab PO QDAY 08/11/25 [Hi story Confirmed 09/01/25] Intake Visit Data Collection New Patient or Established: Established Patient (seen at [facility] within 3 years) Reason for Visit:: Seen by Clinical Staff ONLY (RN/MA): No Enrollment Management Vice President Required: No Do You Feel Safe at Home: Yes Authorities Contacted: N/A PCP or OBGYN visit in last 3 months: Yes Date of Last PCP or OBGYN visit: 08/13/25 Hx Now: No Are you currently on any form of Control: No Pain Present Currently: Yes Pain Scale Used: Schneider-Miller/Numerical Pain scale:: 0 Smoking Status Smoking Status: Never smoker LEAD CUSTODIAN: Past Medical History Past Medical History: No Hx Neurological Disorders, No Hx Breast Cancer, No Hx Cardiac Disorders, No Hx Cancer, No Hx Blood Disorders, No Hx Gastrointestinal Disorders, No Hx Renal Disease, No Hx Diabetes Mellitus Type 1 and No Hx Diabetes Mellitus Type 2 Questionnaires Covid-19 Vaccine Questionnaire Has patient been vacinated for Covid-19 Have you been vacinated for Covid-19: No Social History Living Situation History Marital Status: Lives With: Family Housing: House Tobacco History Smoking Status: Never smoker Second Hand Smoke Exposure: No Alcohol History Alcohol Intake: Never Domestic Abuse History Do You Feel Safe at Home: Yes EPDS - PP Depression Screening [place] Pospartum Depression Screen I have been able to laugh and see the funny side of things: (0) As much as I always could I have looked forward with enjoyment to things: (0) As much as I ever did I have blamed myself unnecessarily when things went wrong: (0) No, never I have been anxious or worried for no good reason: (0) No, not at all I have felt scared or panicky for no very good reason: (0) No, not at all Things have been getting on top of me: (0) No, I have been coping as well as ever I have been so unhappy that I have had difficulty sleeping: (0) No, not at all I have felt sad or miserable: (0) No, not at all I have been so unhappy that I have been crying: (0) No, never The thought of harming myself has occurred to me: (0) Never EPDS completed yes Care OB Visit Log OB Flowsheet Initial Weight: Not Recorded Date -?-?-?-?-?-?-?-?-?-?-?-?- EGA Weight BP Alb Glu CTX Pres Fundal ht FHR Mov Dilation Station Effacement Hx Notes Visit Note 06/22/25 -?-?-?-?-?-?-?-?-?-?-?-?- 32w 2d 67.302 kg 105/69 absent cephalic 33 145 active 24-year-old for OBI. Patient a transfer from [facility] with records. Fetus active. Denies leaking, denies bleeding, denies contractions. Patient is taking vitamins. Her has been uneventful. S chedule ultrasound for MFM. Discussed labor precautions increase fluids. GBS next visit. kick count twice daily. Return in 2 weeks OB check 07/20/25 -?-?-?-?-?-?-?-?-?-?-?-?- 36w 2d 84.538 kg 125/87 occasional cephalic 35 145 active No OB complaints. Fetus active. Denies leaking, denies bleeding, denies contractions. GBS today. Discussed labor precautions. Discussed kick count twice a day. Discussed danger signs symptoms and ER precautions. Return a week OB check 07/28/25 -?-?-?-?-?-?-?-?-?-?-?-?- 37w 3d 69.513 kg 113/73 occasional cephalic 36 145 active Fetus active. Denies leaking. Denies bleeding. Occasional contraction and pressure. GBS was positive Discussed GBS. Discussed labor precautions. Kick count twice a day. Discussed danger signs symptoms and ER precautions. Return week OB check 08/10/25 -?-?-?-?-?-?-?-?-?-?-?-?- 39w 2d 70.874 kg 137/81 occasional cephalic 38 145 active 1 -2 80 Increased pressure and contractions. Denies leaking. Denies bleeding. Occasional contraction. Reports good movement Discussed labor signs and symptoms. Discussed ER precautions. Kick count twice a day. And danger signs symptoms reviewed return in a week OB check KATE Calculator Estimated Delivery Date Method Current WG Current Estimate 08/15/25 LMP (Certain) 42w 3d Other Estimates 08/07/25 Ultrasound #1 43w 4d 08/15/25 Ultrasound #2 42w 3d Notes Visit Date: 07/28/25 Last Updated by: Cordelia Olguin CNM GBS+ Visit Date: 06/22/25 Last Updated by: Cordelia Olguin CNM 06/22: 24 yo , lmp 11/08/24. eDC 08/15/25. 1st sono: 05/11/25: 27w3. EDC 08/07/25. NIPT/AFP and carrier screen-, HBSAG-,HIV-,HC-, GC/CT-, UT-, 1hr gtt- RPR:NR, rubella NI, A1: 5.6 HPI Interval History: 24-year-old 1 para 1 for 3-week visit. Patient had vaginal delivery August 12, 2025. Baby girl weighing 7 pounds 7. Patient is breast- feeding without any problems. She is very happy and denies depression. She has limited support. Father the baby is involved. Patient had a normal . And a midline episiotomy Was or delivery considered high risk: No Delivery type: vaginal Was labor induced: no Gestational age at delivery (weeks): 39 Delivery date: 08/12/25 Delivering provider: hernandez Delivery complications: No Is patient infant: Yes Is patient sexually active: No Contraception planned: condom Review of Systems Review of Systems ROS limited to current LEAD CUSTODIAN complaints: Yes Exam Narrative Physical exam: Normal heart rate and rhythm. Lungs clear no wheezes. Abdomen is soft nontender. Uterus well involuted. Perineum is intact no lacerations. No swelling. Small lochia. Negative Homans' sign. 2+ DTRs. No edema no swelling. Breasts are soft General Limitations: no limitations General Appearance: alert, in no apparent distress, comfortable, cooperative, healthy appearing, well developed and well groomed Head Head exam: atraumatic, normocephalic and normal inspection Chest Chest inspection: Present normal inspection and symmetric chest wall rise Resp Respiratory exam: Present normal lung sounds bilaterally Card Cardiovascular exam: Present regular rate, normal rhythm and normal heart sounds Abdominal Abdominal exam: Present soft and normal bowel sounds Extremities Extremities exam: Present normal inspection and full ROM Office Procedures OBC Clinic LOC & Office Proc's Nursing/Assessment Patient Status: Established Patient OB Clinic Nursing Assessment: Medication Reconciliation, Update PMH in EMR and Vital Signs OB Clinic Coordination of Care: Complex Care and Chronic Disease 1-5, Education Complex Pt/Fam, Consent,records obtained, informed consent and Staff clarify orders Established Patient Charge Established Patient Point Assignment: 90 Antepartum Initial or Follow-up Antepartum Initial Visit: Yes Assessment & Plan Diagnosis / Problem List (1) Routine Follow-Up: Plan: Review condoms effectiveness and compliance. Discussed breast-feeding and latching. Increase fluids. Continue vitamins. No sex at this time. Discussed continued comfort measures and sitz bath's for midline episiotomy. Return in 3 weeks for follow-up (2) 2 weeks follow-up: Status: Acute Care Reviewed delivery summary and any complications: Yes Uterus involuted to: 3 below Perineal / incision healing noted: Yes Screened for depression: Yes Depression counseling provided: No Discussed family planning & contraception: Yes Contraception planned: condom Counseling on gradual excercise: Yes Discussed and concerns (describe), provided support: Yes Referred to living specialist: No Counseled on good nutrition, hydration, and self care: Yes Reviewed vaccine status: No Chronic & current problems reconciled on problem list: Yes Infant care discussed; questions answered: feeding Follow up: routine/prn (Sitz bath's and comfort measures for midline episiotomy. No sex. Discussed latching and breast-feeding positions. Continue prenatals. Increase fluids. I offered contraception but patient declined and plans to use condoms. Return in 3 weeks for follow-up visit.Banana) (FP) Tobacco Smoking Status: Never smoker
== END 2025-09-01 09:58 | disposition home or self-care (01) ==
LOC: HODSOBC 09:35
PROVIDERS: Supervising Provider Advanced Practice Midwife; Visit Provider Advanced Practice Midwife
DX: Z39.2 Encounter for routine postpartum follow-up (principal); Z39.1 Encounter for care and examination of lactating mother
CPT/HCPCS: 59425; 99213; G0463